=== PATIENT | female | born 1990 | race Caucasian/White ===

== ENCOUNTER 2018-10-14 00:01 | Emergency (ER) | payer BC, MEDICAID ==
[2018-10-14 00:02] VITALS: BMI 22.2
[2018-10-14 00:20] VITALS: O2SAT 100
[2018-10-14] MEDS ORDERED: Sodium Chloride 0.9% 1,000 ML IV ONE (00:23)
--- NOTE | 2018-10-14 00:23 | C.PDOC ---
History Of Present Illness Patient presents to the ER shaking stating she has been "detoxing" from ETOH by herself. Patient drinks everyday, last drink was 1600, states she has gone through the "shakes" before. She is currently speaking in complete sentences. Denies fever, chills, nausea, or vomiting. Time Seen by Provider: 10/14/18 00:22 Chief Complaint (Nursing): Substance Abuse History Per: Patient History/Exam Limitations: no limitations Onset/Duration Of Symptoms: Hrs Current Symptoms Are (Timing): Still Present Suicide/Self Injury Attempted (Context): None Modifying Factor(s): Alcohol Associated Symptoms: denies: Depression, Suicidal Thoughts Involuntary Hold By: None Recent travel outside of the [place]: No Past Medical History Reviewed: Historical Data, Nursing Documentation, Vital Signs Vital Signs: Last Vital Signs Temp 98.2 F 10/14/18 00:16 Pulse 101 H 10/14/18 00:16 Resp 24 10/14/18 00:16 BP 170/93 H 10/14/18 00:16 Pulse Ox 100 10/14/18 00:16 - Medical History PMH: Seizures Denies: Depression, Diabetes, Hepatitis, HIV, HTN, Chronic Kidney Disease, Sexually Transmitted Disease - [facility] Procedures INJECT/INFUSE NEC (08/05/04) INTRODUCTION OF SERUM/TOX/VACCINE INTO MUSCLE, PERC APPROACH (03/20/16) REPAIR FACE SKIN, EXTERNAL APPROACH (03/20/16) Family History: States: No Known Family Hx - Social History Hx Tobacco Use: Yes Hx Alcohol Use: Yes Hx Substance Use: No - Immunization History Hx Tetanus Toxoid Vaccination: No Hx Influenza Vaccination: No Hx Pneumococcal Vaccination: No Review Of Systems Constitutional: Negative for: Fever, Chills Cardiovascular: Negative for: Chest Pain, Palpitations Respiratory: Negative for: Cough, Shortness of Breath Gastrointestinal: Negative for: Nausea, Vomiting Neurological: Positive for: Other (Shaking). Negative for: Weakness, Numbness Physical Exam - Physical Exam Appears: Non-toxic Skin: Warm, Dry Head: Normacephalic Eye(s): bilateral: Normal Inspection Oral Mucosa: Moist Chest: Symmetrical, No Tenderness Cardiovascular: Rhythm Regular Respiratory: No Rales, No Rhonchi, No Wheezing Gastrointestinal/Abdominal: Soft, No Tenderness Neurological/Psych: Oriented x3, Other (Tremulous) ED Course And Treatment - Laboratory Results Result Diagrams: 10/14/18 00:31 10/14/18 00:31 O2 Sat by Pulse Oximetry: 100 (Room air) Pulse Ox Interpretation: Normal Progress Note: Blood work and urinalysis ordered. IV fluids, librium, pepcid, and zofran administered. Pt was seen by the vegetable harvest worker and given information for outpatient treatment centers Reevaluation Time: 03:59 Reassessment Condition: Improved Medical Decision Making Medical Decision Making: Upon provider reevaluation patient is feeling better, is medically stable, and requires no further treatment in the ED at this time. Patient will be discharged home with Rx for zofran . Counseling was provided and all questions were answered regarding diagnosis and need for follow up with the referred clinic. There is agreement to discharge plan. Return if symptoms persist or worsen. Disposition Counseled Patient/Family Regarding: Studies Performed, Diagnosis, Need For Followup, Rx Given - Disposition Referrals: [facility] [Outside] Disposition: HOME/ ROUTINE Disposition Time: 00:23 Condition: FAIR Prescriptions: Ondansetron ODT [Zofran ODT] 1 odt PO BID PRN #6 odt PRN Reason: Nausea/Vomiting Instructions: Alcohol Abuse and Alcoholism (DC) Forms: [employer] (Italian) - Clinical Impression Clinical Impression: Alcohol abuse - Scribe Statement The provider has reviewed the documentation as recorded by the Scribe Loc [place] All medical record entries made by the Scribe were at my direction and personally dictated by me. I have reviewed the chart and agree that the record accurately reflects my personal performance of the history, physical exam, medical decision making, and the department course for this patient. I have also personally directed, reviewed, and agree with the discharge instructions and disposition.
[2018-10-14 00:40] LABS: BASO # 0.1 K/uL (0.0-0.2); BASO % 1.1 % (0.0-2.0); EOS % 0.8 % (0.0-4.0); HEMOGLOBIN 13.1 g/dL (11.0-16.0); LYMPH # 0.8 K/uL (1.0-4.3); MEAN CORPUSCULAR HEMOGLOBIN 31.1 pg (27.0-31.0); MEAN CORPUSCULAR HGB CONC 34.6 g/dL (33.0-37.0); MEAN PLATELET VOLUME 7.2 fL (7.2-11.7); MONO # 0.6 K/uL (0.0-0.8); MONO % 9.8 % (0.0-10.0); NEUT # 4.1 K/uL (1.8-7.0); NEUT % 73.3 % (50.0-75.0); NRBC % 0.1 % (0.0-2.0); RBC 4.2 Mil/uL (3.80-5.20); RED CELL DISTRIBUTION WIDTH 13.7 % (11.5-14.5); WHITE BLOOD COUNT 5.6 K/uL (4.8-10.8)
[2018-10-14 00:55] LABS: ALB/GLOB RATIO 1.5 (1.0-2.1); ALBUMIN 4.8 g/dL (3.5-5.0); ALT/SGPT 30 U/L (9-52); AST/SGOT 43 U/L (14-36); BLOOD UREA NITROGEN 10 mg/dL (7-17); CALCIUM 9.3 mg/dl (8.6-10.4); GFR NON-AFRICAN AMERICAN > 60
[2018-10-14 03:15] LABS: SQUAMOUS EPITHIAL 31 /hpf (0-5); URINE BACTERIA RARE (<OCC); URINE BILIRUBIN NEGATIVE (NEGATIVE); URINE BLOOD NEGATIVE (NEGATIVE); URINE CLARITY Hazy (Clear); URINE COLOR Yellow (YELLOW); URINE GLUCOSE (UA) NORMAL (Normal); URINE LEUKOCYTE ESTERASE TRACE Leu/uL (Negative); URINE PROTEIN 2+ mg/dL (NEGATIVE)
[2018-10-14 03:19] VITALS: BP 117/79; PULSE 102; RESP 18; TEMP 98.5
[2018-10-14 03:20] LABS: HCG,QUALITATIVE URINE NEGATIVE (NEGATIVE)
[2018-10-14 03:43] LABS: BARBITURATES, UR NEGATIVE (NEGATIVE); BENZODIAZEPINES, UR NEGATIVE (NEGATIVE); OPIATES, UR NEGATIVE (NEGATIVE); PHENCYCLIDINE, UR NEGATIVE (NEGATIVE)
== END 2018-10-14 04:12 | disposition home or self-care (01) ==
LOC: C.ER 00:01
DX: F10.10 Alcohol abuse, uncomplicated (principal); Y90.9 Presence of alcohol in blood, level not specified
CPT/HCPCS: 80053; 80320; 80324; 80345; 80346; 80349; 80353; 80358; 80361; 81001; 83735; 83992; 84100; 84703; 85025; 96361; 96374; 96375; 99284; J2405; J7030

== ENCOUNTER 2018-11-14 15:40 | Observation (INO) | payer MEDICAID ==
[2018-11-14 15:40] VITALS: BMI 22.2
[2018-11-14] MEDS ORDERED: Sodium Chloride 0.9% 1,000 ML IV ONE (16:05)
--- NOTE | 2018-11-14 16:14 | C.PDOC ---
History Of Present Illness 28 y/o female with no PMHx presents to the ED requesting detox from alcohol. States she gets tremors when she does not drink. Patient reports daily alcohol use, her last drink was yesterday in an effort to self-detox at home. She is now complaining of worsening tremors and feeling "shaky." Patient otherwise denies chest pain, palpitations, SOB, abdominal pain, nausea, vomiting, or dizziness. Denies any drug use. Time Seen by Provider: 11/14/18 15:46 Chief Complaint (Nursing): Substance Abuse History Per: Patient History/Exam Limitations: no limitations Onset/Duration Of Symptoms: Days Current Symptoms Are (Timing): Still Present Suicide/Self Injury Attempted (Context): None Modifying Factor(s): Alcohol Associated Symptoms: denies: Suicidal Thoughts, Suicidal Plan Past Medical History Reviewed: Historical Data, Nursing Documentation, Vital Signs Vital Signs: Last Vital Signs Temp 98 F 11/14/18 15:42 Pulse 104 H 11/14/18 16:05 Resp 15 11/14/18 16:05 BP 134/86 11/14/18 16:05 Pulse Ox 98 11/14/18 16:05 - Medical History PMH: Seizures Denies: Depression, Diabetes, Hepatitis, HIV, HTN, Chronic Kidney Disease, Sexually Transmitted Disease Other PMH: Alcohol abuse - [facility] Procedures INJECT/INFUSE NEC (08/05/04) INTRODUCTION OF SERUM/TOX/VACCINE INTO MUSCLE, PERC APPROACH (03/20/16) REPAIR FACE SKIN, EXTERNAL APPROACH (03/20/16) Family History: States: Unknown Family Hx - Social History Hx Tobacco Use: Yes Hx Alcohol Use: Yes (daily) Hx Substance Use: No - Immunization History Hx Tetanus Toxoid Vaccination: No Hx Influenza Vaccination: No Hx Pneumococcal Vaccination: No Review Of Systems Except As Marked, All Systems Reviewed And Found Negative. Constitutional: Positive for: Other (Feels "shaky"). Negative for: Fever, Chills Eyes: Negative for: Vision Change Cardiovascular: Negative for: Chest Pain, Palpitations Respiratory: Negative for: Shortness of Breath Gastrointestinal: Negative for: Nausea, Vomiting, Abdominal Pain, Diarrhea Musculoskeletal: Positive for: Other (Tremors). Negative for: Back Pain Neurological: Negative for: Weakness, Numbness, Dizziness Psych: Positive for: Other (Daily alcohol abuse) Physical Exam - Physical Exam Appears: Non-toxic, No Acute Distress Skin: Warm, Dry Head: Atraumatic, Normacephalic Eye(s): bilateral: Normal Inspection, PERRL, EOMI Oral Mucosa: Moist Tongue: Other (Tremulous) Neck: Normal ROM Chest: Symmetrical Cardiovascular: Rhythm Regular, Other (Tachycardic) Respiratory: Normal Breath Sounds, No Accessory Muscle Use, No Wheezing Gastrointestinal/Abdominal: Soft, No Tenderness, No Distention Extremity: Bilateral: Atraumatic, Normal Color And Temperature, Other (Tremulous to bilateral hands) Pulses: Left Radial: Normal, Right Radial: Normal Neurological/Psych: Oriented x3, Normal Cranial Nerves ED Course And Treatment - Laboratory Results Result Diagrams: 11/14/18 16:12 11/14/18 16:12 O2 Sat by Pulse Oximetry: 98 (RA) Pulse Ox Interpretation: Normal Medical Decision Making Medical Decision Making: Impression: Detox for alcohol Initial Plan: - EKG - Labs - Chest x-ray - IV fluids - 1 mg IV Ativan Discussed w/ crisis team, there are no detox beds available at this time. Crisis will speak to patient and licensed professional counselor regarding outpatient programs available. 4:19PM EKG shows sinus tachycardia at 108bpm with non-specific st changes. Cxray negative. 4:48pm CIWA of 9. CXR shows no acute disease. 5:14PM Patient was offered admission to hospital for alcohol withdrawal as there are no detox beds and then likely transfer to detox. Dr. Jane at bedside. Disposition - Disposition Disposition: HOSPITALIZED Disposition Time: 17:34 Condition: FAIR Forms: [employer] (Turkish) - Clinical Impression Clinical Impression: Alcohol withdrawal - Scribe Statement The provider has reviewed the documentation as recorded by the Felicia Rivas Provider Attestation: All medical record entries made by the Jerryibally were at my direction and personally dictated by me. I have reviewed the chart and agree that the record accurately reflects my personal performance of the history, physical exam, medical decision making, and the department course for this patient. I have also personally directed, reviewed, and agree with the discharge instructions and disposition.
[2018-11-14 16:15] LABS: BASO % 0.2 % (0.0-2.0); EOS # 0.1 K/uL (0.0-0.7); EOS % 0.8 % (0.0-4.0); HEMOGLOBIN 13.5 g/dL (11.0-16.0); LYMPH # 1.1 K/uL (1.0-4.3); LYMPH % 16.8 % (20.0-40.0); MEAN CORPUSCULAR HEMOGLOBIN 30.7 pg (27.0-31.0); MEAN CORPUSCULAR HGB CONC 33.8 g/dL (33.0-37.0); MEAN PLATELET VOLUME 7.4 fL (7.2-11.7); MONO # 0.4 K/uL (0.0-0.8); MONO % 5.4 % (0.0-10.0); NEUT # 5.2 K/uL (1.8-7.0); NEUT % 76.8 % (50.0-75.0); RBC 4.39 Mil/uL (3.80-5.20); RED CELL DISTRIBUTION WIDTH 14.8 % (11.5-14.5); WHITE BLOOD COUNT 6.8 K/uL (4.8-10.8)
[2018-11-14] MEDS ORDERED: Sodium Chloride 0.9% 1,000 ML ONE (16:16)
[2018-11-14 16:28] LABS: BLOOD UREA NITROGEN 13 mg/dL (7-17); CALCIUM 9.2 mg/dl (8.6-10.4); GFR NON-AFRICAN AMERICAN > 60
[2018-11-14 16:30] LABS: ALB/GLOB RATIO 1.5 (1.0-2.1); ALBUMIN 5.1 g/dL (3.5-5.0); ALT/SGPT 10 U/L (9-52); AST/SGOT 53 U/L (14-36)
[2018-11-14 16:31] LABS: BARBITURATES, UR NEGATIVE (NEGATIVE); OPIATES, UR NEGATIVE (NEGATIVE); PHENCYCLIDINE, UR NEGATIVE (NEGATIVE)
[2018-11-14 16:32] LABS: BENZODIAZEPINES, UR POSITIVE (NEGATIVE)
--- NOTE | 2018-11-14 16:50 | RAD ---
Date of service: 11/14/2018 HISTORY: tachycardia COMPARISON: No prior. FINDINGS: LUNGS: No active pulmonary disease. PLEURA: No significant pleural effusion identified, no pneumothorax apparent. CARDIOVASCULAR: No aortic atherosclerotic calcification present. Normal cardiac size. No pulmonary vascular congestion. OSSEOUS STRUCTURES: No significant abnormalities. VISUALIZED UPPER ABDOMEN: Normal. OTHER FINDINGS: None. IMPRESSION: No active disease.
--- NOTE | 2018-11-14 19:21 | CP.PCM.HP ---
History of Present Illness - History of Present Illness History of Present Illness: 28 y/o female with no PMHx presents to the ED requesting detox from alcohol. States she gets tremors when she does not drink. Patient reports daily alcohol use, her last drink was yesterday in an effort to self-detox at home. She is now complaining of worsening tremors and feeling "shaky. Pt. was admitted as she had persistent s. tachy Present on Admission - Present on Admission Any Indicators Present on Admission: No Review of Systems - Review of Systems All systems: reviewed and no additional remarkable complaints except (tremors ,shaking) Past Patient History - Infectious Disease Hx of Infectious Diseases: None - Past Medical History & Family History Past Medical History?: Yes - Past Social History Smoking Status: Current Some Days Smoker - CARDIAC Hx Hypertension: No - PULMONARY Hx Respiratory Disorders: No Hx Tuberculosis: No - NEUROLOGICAL Hx Seizures: Yes - HEENT Hx HEENT Problems: No - RENAL Hx Chronic Kidney Disease: No - ENDOCRINE/METABOLIC Hx Endocrine Disorders: No - HEMATOLOGICAL/ONCOLOGICAL Hx Human Immunodeficiency Virus (HIV): No - INTEGUMENTARY Hx Dermatological Problems: No - MUSCULOSKELETAL/RHEUMATOLOGICAL Hx Musculoskeletal Disorders: No - GASTROINTESTINAL Hx Gastrointestinal Disorders: No - GENITOURINARY/GYNECOLOGICAL Hx Sexually Transmitted Disorders: No - PSYCHIATRIC Hx Depression: No Hx Substance Use: No - SURGICAL HISTORY Hx Surgeries: Yes Other/Comment: Left oophorectomy - ANESTHESIA Hx Anesthesia: Yes Hx Anesthesia Reactions: No Hx Malignant Hyperthermia: No Meds Allergies/Adverse Reactions: Allergies Allergy/AdvReac Type Severity Reaction Status Date / Time formaldehyde Allergy RASH Verified 11/14/18 15:45 food coloring AdvReac RASH Uncoded 11/14/18 15:45 pasta AdvReac RASH Uncoded 11/14/18 15:45 pollens AdvReac RASH Uncoded 11/14/18 15:45 Physical Exam - Constitutional Appears: Well - Head Exam Head Exam: ATRAUMATIC, NORMAL INSPECTION, NORMOCEPHALIC - Eye Exam Eye Exam: EOMI, Normal appearance, PERRL - Respiratory Exam Respiratory Exam: Clear to Auscultation Bilateral, NORMAL BREATHING PATTERN - Cardiovascular Exam Cardiovascular Exam: Tachycardia, REGULAR RHYTHM - GI/Abdominal Exam GI & Abdominal Exam: Normal Bowel Sounds, Soft. absent: Tenderness - Extremities Exam Extremities exam: Positive for: normal inspection - Back Exam Back exam: NORMAL INSPECTION - Neurological Exam Neurological exam: Alert, CN II-XII Intact, Oriented x3 (tremors ) - Skin Skin Exam: Erythema Results - Vital Signs Recent Vital Signs: Last Vital Signs Temp 98.5 F 11/14/18 18:47 Pulse 97 H 11/14/18 18:47 Resp 20 11/14/18 18:47 BP 130/81 11/14/18 18:47 Pulse Ox 100 11/14/18 18:47 - Labs Result Diagrams: 11/15/18 07:18 11/15/18 07:18 Labs: Laboratory Results - last 24 hr 11/14/18 11/14/18 11/14/18 16:12 16:12 16:12 WBC 6.8 RBC 4.39 Hgb 13.5 Hct 40.0 MCV 91.0 MCH 30.7 MCHC 33.8 RDW 14.8 H Plt Count 197 MPV 7.4 Neut % (Auto) 76.8 H Lymph % (Auto) 16.8 L [place] % (Auto) 5.4 Eos % (Auto) 0.8 Baso % (Auto) 0.2 Neut # (Auto) 5.2 Lymph # (Auto) 1.1 [place] # (Auto) 0.4 Eos # (Auto) 0.1 Baso # (Auto) 0.0 Sodium 133 Potassium 4.7 Chloride 97 L Carbon Dioxide 23 Anion Gap 18 BUN 13 Creatinine 0.6 L Est GFR ( Amer) > 60 Est GFR (Non-Af Amer) > 60 Random Glucose 93 Calcium 9.2 Phosphorus 2.5 Magnesium 1.3 L Total Bilirubin 2.1 H AST 53 H D ALT 10 Alkaline Phosphatase 59 Total Protein 8.5 H Albumin 5.1 H Globulin 3.4 Albumin/Globulin Ratio 1.5 Urine Opiates Screen Negative Urine Methadone Screen Negative Ur Barbiturates Screen Negative Ur Phencyclidine Scrn Negative Ur Amphetamines Screen Negative U Benzodiazepines Scrn Positive U Oth Cocaine Metabols Negative U Cannabinoids Screen Negative Alcohol, Quantitative 71 H Assessment & Plan (1) Seizure Status: Chronic (2) Alcohol withdrawal Status: Acute
[2018-11-14] MEDS: Folic Acid 1 MG, Thiamine 100 MG, Multivitamin (MVI) 10 ML in Dextrose 5% In Water 1,00... IV SCH ×2 (19:43→22:59)
[2018-11-14 20:49] LABS: SQUAMOUS EPITHIAL 35 /hpf (0-5); URINE BACTERIA OCC (<OCC); URINE BILIRUBIN NEGATIVE (NEGATIVE); URINE BLOOD NEGATIVE (NEGATIVE); URINE CLARITY Hazy (Clear); URINE COLOR Amber (YELLOW); URINE GLUCOSE (UA) NORMAL (Normal); URINE LEUKOCYTE ESTERASE 1+ Leu/uL (Negative); URINE PROTEIN 1+ mg/dL (NEGATIVE)
[2018-11-15] MEDS: Magnesium Sulfate 1 gm in D5W 1 GM/100 ML BAG IVPB SCH ×2 (01:15→01:54)
[2018-11-15 07:29] LABS: MEAN CELL VOLUME 91.5 fL (81.0-99.0); MEAN CORPUSCULAR HEMOGLOBIN 30.8 pg (27.0-31.0); MEAN CORPUSCULAR HGB CONC 33.6 g/dL (33.0-37.0); MEAN PLATELET VOLUME 7.7 fL (7.2-11.7); RBC 4.22 Mil/uL (3.80-5.20); RED CELL DISTRIBUTION WIDTH 14.9 % (11.5-14.5); WHITE BLOOD COUNT 3.8 K/uL (4.8-10.8)
[2018-11-15 07:54] LABS: ALB/GLOB RATIO 1.5 (1.0-2.1); ALBUMIN 4.2 g/dL (3.5-5.0); ALT/SGPT 20 U/L (9-52); AST/SGOT 35 U/L (14-36); BLOOD UREA NITROGEN 9 mg/dL (7-17); CALCIUM 8.9 mg/dl (8.6-10.4); GFR NON-AFRICAN AMERICAN > 60
[2018-11-15 08:23] VITALS: RESP 20
--- NOTE | 2018-11-15 10:14 | PCM.PSYCH ---
Initial Psychiatric Evaluation - Initial Psychiatric Evaluation Type of Admission: Voluntary Legal Status: Capacity Chief Complaint (in patient's own words): I was drinking heavily History of Present Illness and Precipitating Events: Patient is a 28 -year-old, female who is single, unemployed, and living with her parents and two her children ages 9 and 8. He presents for alcohol detox. The patient was consulted by psychiatry today. Patient has a long history of alcohol abuse. Patient reports drinking 2 pints of alcohol a day. Patient has a history of DTs and seizures. She states that her last drink was last night. She has been to [facility] [place] detox twice before, with the last time being 1 month ago. Patient reports that her longest time of sobriety was 1 year before she relapsed recently. She currently complains of nausea, abdominal pain, and feels anxious from her withdrawal. She denies any feelings of depression, hopelessness, helplessness, or worthlessness. Patient denies any suicidal or homicidal ideation, auditory or visual hallucinations, and paranoia. Patient states that she smokes 4-5 cigarettes a day but denies using any other substances including heroin, cocaine, and pills. Past Psychiatric History: none Family Psych History: none PMHx: epilepsy (last seizure was last week) Meds: vitamin D Current Medications: Active Medications Generic Name Dose Route Start Last Admin Trade Name Benito PRN Reason Stop Dose Admin Folic Acid 1 mg 11/15/18 10:00 Folic Acid PO DAILY [facility] Folic Acid 1 mg/ Thiamine HCl 1,011.2 mls @ 200 mls/hr 11/15/18 20:00 100 mg/ Multivitamins/Vitamin IV C 10 ml/ Dextrose Q24H [facility] Multivitamins 1 tab 11/15/18 10:00 Hexavitamin PO DAILY [facility] Thiamine HCl 100 mg 11/15/18 10:00 Vitamin B1 Tab PO DAILY [facility] Past Psychiatric History - Past Psychiatric History Previous Treatment History: None Pertinent Medical Hx (Current Medical&Sleep Prob, Allergies): Allergies Allergy/AdvReac Type Severity Reaction Status Date / Time formaldehyde Allergy RASH Verified 11/14/18 15:45 food coloring AdvReac RASH Uncoded 11/14/18 15:45 pasta AdvReac RASH Uncoded 11/14/18 15:45 pollens AdvReac RASH Uncoded 11/14/18 15:45 Cholecalciferol [Vitamin D] 1,000 unit PO DAILY 11/14/18 Review of Systems - Review of Systems All systems: reviewed and no additional remarkable complaints except - Psychiatric Psychiatric: Anxiety, Irritability. absent: Suicidal Ideation Mental Status Examination - Personal Presentation Personal Presentation: Looks stated age - Affect Affect: Constricted - Motor Activity Motor Activity: Calm - Reliability in Providing Information Reliability in Providing Information: Fair - Speech Speech: Organized - Mood Mood: Anxious - Formal Thought Process Formal Thought Process: No Impairment - Obsessions/Compulsions Obsessions: No Compulsions: No - Cognitive Functions Orientation: Person, Place, Situation, Time Sensorium: Alert Attention/Concentration: Attentive Abstract Thinking: [place] Estimate of Intelligence: Below average Judgement: Imparied, as evidence by: Poor judgement, Intact, as evidence by: Insight regarding need for hospitalization - Risk Risk: Withdrawal, Diminished functioning - Strength & Assets Inventory Strength & Assets Inventory: Family support DSM 5 DX - DSM 5 DSM 5 Diagnosis: Alcohol use disorder severe Alcohol withdrawal - Recommended/Plan of Treatment Treatment Recommendations and Plan of Treatment: Supportive therapy Psychoeducation Librium taper Trazodone for insomnia Patient psychiatrically stable. Psychiatric follow-up as needed
[2018-11-15] MEDS: Multiple Vitamins Tab PO SCH (11:34)
--- NOTE | 2018-11-15 12:03 | CP.PCM.PN ---
Subjective - Date & Time of Evaluation Date of Evaluation: 11/15/18 Time of Evaluation: 12:02 - Subjective Subjective: ALERT VS STABLE TREMORS AND SHAKING AWAITING PSYCH EVAL FOR DEXOT Objective - Vital Signs/Intake and Output Vital Signs (last 24 hours): Temp Pulse Resp BP Pulse Ox 97.9 F 88 20 110/69 96 11/15/18 08:22 11/15/18 08:22 11/15/18 08:22 11/15/18 08:22 11/15/18 08:22 Intake and Output: 11/15/18 11/15/18 11:59 23:59 Intake Total 720 Balance 720 - Medications Medications: Current Medications Chlordiazepoxide (Librium) 25 mg PO Q4H PRN PRN Reason: Alcohol Withdrawal Chlordiazepoxide (Librium) 25 mg PO Q6 [facility]; Taper Stop: 11/19/18 11:59 Last Admin: 11/15/18 11:34 Dose: 25 mg Clonidine HCl (Catapres) 0.1 mg PO Q4H PRN PRN Reason: Symptoms of alcohol withdrawl Folic Acid (Folic Acid) 1 mg PO DAILY [facility] Last Admin: 11/15/18 11:34 Dose: 1 mg Folic Acid 1 mg/ Thiamine HCl 100 mg/ Multivitamins/Vitamin C 10 ml/ Dextrose 1,011.2 mls @ 200 mls/hr IV Q24H [facility] Multivitamins (Hexavitamin) 1 tab PO DAILY [facility] Last Admin: 11/15/18 11:34 Dose: 1 tab Thiamine HCl (Vitamin B1 Tab) 100 mg PO DAILY [facility] Last Admin: 11/15/18 11:34 Dose: 100 mg Trazodone HCl (Desyrel) 50 mg PO HS PRN PRN Reason: Insomnia - Labs Labs: 11/15/18 07:18 11/15/18 07:18 Assessment and Plan (1) Seizure Status: Chronic (2) Alcohol withdrawal Status: Acute
[2018-11-15] MEDS: Sodium Chloride 0.9% 1,000 ML IV SCH (13:59)
[2018-11-15] MEDS ORDERED: Folic Acid 1 MG, Thiamine 100 MG, Multivitamin (MVI) 10 ML in Dextrose 5% In Water 1,00... IV SCH (20:00)
[2018-11-16 00:07] VITALS: TEMP 97.9
[2018-11-16] MEDS: Sodium Chloride 0.9% 1,000 ML IV SCH ×2 (03:08→14:53)
[2018-11-16 07:56] VITALS: BP 112/77; O2SAT 97
[2018-11-16] MEDS: Multiple Vitamins Tab PO SCH (10:43)
--- NOTE | 2018-11-16 11:38 | CP.PCM.PN ---
Subjective - Date & Time of Evaluation Date of Evaluation: 11/16/18 Time of Evaluation: 11:38 - Subjective Subjective: TREMORS LESS PT IS MEDICALY CLEARED FOR DETOX Objective - Vital Signs/Intake and Output Vital Signs (last 24 hours): Temp Pulse Resp BP Pulse Ox 97.9 F 78 20 112/77 97 11/16/18 07:00 11/16/18 07:00 11/16/18 07:00 11/16/18 07:00 11/16/18 07:00 Intake and Output: 11/15/18 11/16/18 23:59 11:59 Intake Total 480 1120 Balance 480 1120 - Medications Medications: Current Medications Chlordiazepoxide (Librium) 25 mg PO Q4H PRN PRN Reason: Alcohol Withdrawal Last Admin: 11/15/18 22:07 Dose: 25 mg Chlordiazepoxide (Librium) 25 mg PO Q6 [facility]; Taper Stop: 11/19/18 11:59 Last Admin: 11/16/18 06:22 Dose: 25 mg Clonidine HCl (Catapres) 0.1 mg PO Q4H PRN PRN Reason: Symptoms of alcohol withdrawl Folic Acid (Folic Acid) 1 mg PO DAILY [facility] Last Admin: 11/16/18 10:43 Dose: 1 mg Folic Acid 1 mg/ Thiamine HCl 100 mg/ Multivitamins/Vitamin C 10 ml/ Dextrose 1,011.2 mls @ 200 mls/hr IV Q24H [facility] Last Admin: 11/15/18 20:30 Dose: 200 mls/hr Sodium Chloride (Sodium Chloride 0.9%) 1,000 mls @ 80 mls/hr IV .[id number] [facility] Last Admin: 11/16/18 03:08 Dose: 80 mls/hr Multivitamins (Hexavitamin) 1 tab PO DAILY [facility] Last Admin: 11/16/18 10:43 Dose: 1 tab Thiamine HCl (Vitamin B1 Tab) 100 mg PO DAILY [facility] Last Admin: 11/16/18 10:43 Dose: 100 mg Trazodone HCl (Desyrel) 50 mg PO HS PRN PRN Reason: Insomnia - Labs Labs: 11/15/18 07:18 11/15/18 07:18 Assessment and Plan (1) Seizure Status: Chronic (2) Alcohol withdrawal Status: Acute
[2018-11-16 11:55] LABS: HEMOGLOBIN 12.1 g/dL (11.0-16.0); MEAN CELL VOLUME 92.6 fL (81.0-99.0); MEAN CORPUSCULAR HEMOGLOBIN 30.7 pg (27.0-31.0); MEAN CORPUSCULAR HGB CONC 33.1 g/dL (33.0-37.0); MEAN PLATELET VOLUME 8.1 fL (7.2-11.7); RBC 3.96 Mil/uL (3.80-5.20); RED CELL DISTRIBUTION WIDTH 14.7 % (11.5-14.5); WHITE BLOOD COUNT 3.5 K/uL (4.8-10.8)
[2018-11-16 12:17] LABS: BLOOD UREA NITROGEN 6 mg/dL (7-17); CALCIUM 8.5 mg/dl (8.6-10.4); GFR NON-AFRICAN AMERICAN > 60
[2018-11-16] MEDS ORDERED: Potassium Chloride 20 mEq ER Tab PO ONE (12:44)
--- NOTE | 2018-11-16 13:43 | CP.PCM.PN ---
Subjective - Date & Time of Evaluation Date of Evaluation: 11/16/18 Time of Evaluation: 13:43 - Subjective Subjective: PATIENT SEEN AND EXAMINED AT THE BEDSIDE Objective - Vital Signs/Intake and Output Vital Signs (last 24 hours): Temp Pulse Resp BP Pulse Ox 97.9 F 78 20 112/77 97 11/16/18 07:00 11/16/18 07:00 11/16/18 07:00 11/16/18 07:00 11/16/18 07:00 Intake and Output: 11/16/18 11/16/18 06:59 18:59 Intake Total 1120 Balance 1120 - Medications Medications: Current Medications Chlordiazepoxide (Librium) 25 mg PO Q4H PRN PRN Reason: Alcohol Withdrawal Last Admin: 11/15/18 22:07 Dose: 25 mg Chlordiazepoxide (Librium) 25 mg PO TID [facility]; Taper Stop: 11/19/18 11:59 Last Admin: 11/16/18 06:22 Dose: 25 mg Clonidine HCl (Catapres) 0.1 mg PO Q4H PRN PRN Reason: Symptoms of alcohol withdrawl Folic Acid (Folic Acid) 1 mg PO DAILY [facility] Last Admin: 11/16/18 10:43 Dose: 1 mg Folic Acid 1 mg/ Thiamine HCl 100 mg/ Multivitamins/Vitamin C 10 ml/ Dextrose 1,011.2 mls @ 200 mls/hr IV Q24H [facility] Last Admin: 11/15/18 20:30 Dose: 200 mls/hr Sodium Chloride (Sodium Chloride 0.9%) 1,000 mls @ 80 mls/hr IV .[id number] [facility] Last Admin: 11/16/18 03:08 Dose: 80 mls/hr Multivitamins (Hexavitamin) 1 tab PO DAILY [facility] Last Admin: 11/16/18 10:43 Dose: 1 tab Thiamine HCl (Vitamin B1 Tab) 100 mg PO DAILY [facility] Last Admin: 11/16/18 10:43 Dose: 100 mg Trazodone HCl (Desyrel) 50 mg PO HS PRN PRN Reason: Insomnia - Labs Labs: 11/16/18 11:44 11/16/18 11:44 Assessment and Plan - Assessment and Plan (Free Text) Assessment: FOLLOW UP WITH DR HOUSTON IN HIS OFFICE ------CALL FOR APPOINTMENT FOLLOW UP WITH DR FRIEND CONTINUE HOME MEDICATION NEW PRESCRIPTION GIVEN ] FOLIC ACID 1 MG PO DAILY MULTI VIT ONE TAB DAILY VIT B1 ONE TAB PO DAILY [facility] TOLERATED AND RECOMMENDATION FOR HER TO GO TO DETOX BUT SHE DECLINE AND WANT TO GO TO HOME AVOID DRINKING ALCOHOL CALL DR HOUSTON OR GO TO THE EMERGENCY ROOM IF SYMPTOM RETURN OR WORSENING
[2018-11-16 14:51] VITALS: PULSE 71
--- NOTE | 2018-11-16 22:03 | CARD ---
APPROVED REPORT Date of service: 11/14/2018 EKG Measurement Heart [id number] <Conclusion> Sinus tachycardia Nonspecific ST abnormality Abnormal ECG
== END 2018-11-16 14:47 | disposition home or self-care (01) ==
LOC: C.ER 15:40 → C.9E 17:30 → C.5S 18:01
PROVIDERS: ADMIT Internal Medicine Cardiovascular Disease; ATTEND Internal Medicine Cardiovascular Disease
DX: F10.230 Alcohol dependence with withdrawal, uncomplicated (principal); F17.210 Nicotine dependence, cigarettes, uncomplicated; R56.9 Unspecified convulsions; Y90.3 Blood alcohol level of 60-79 mg/100 ml
CPT/HCPCS: 36415; 71045; 80048; 80053; 80320; 80324; 80345; 80346; 80349; 80353; 80358; 80361; 81001; 81025; 83735; 83992; 84100; 85025; 85027; 93005; 96360; 96374; 99285; G0378; J2060; J2405; J3411; J3475; J7030; J7070

== ENCOUNTER 2018-12-05 22:39 | Inpatient (IN) | payer MEDICAID | END 2018-12-11 11:34 | disposition home or self-care (01) | DRG 750 | LOC: C.5E 12-08 20:59 → C.ER 22:39 → C.5E 12-06 08:29 | PROC: HZ2ZZZZ Detoxification Services for Substance Abuse Treatment (ICD-10-PCS; principal; 2018-12-06) | PROC: HZ52ZZZ Individual Psychotherapy for Substance Abuse Treatment, Cognitive-Behavioral (ICD-10-PCS; 2018-12-06) | PROC: HZ59ZZZ Individual Psychotherapy for Substance Abuse Treatment, Supportive (ICD-10-PCS; 2018-12-06) | PROC: HZ56ZZZ Individual Psychotherapy for Substance Abuse Treatment, Psychoeducation (ICD-10-PCS; 2018-12-06) | PROC: HZ42ZZZ Group Counseling for Substance Abuse Treatment, Cognitive-Behavioral (ICD-10-PCS; 2018-12-06) | PROC: HZ46ZZZ Group Counseling for Substance Abuse Treatment, Psychoeducation (ICD-10-PCS; 2018-12-06) | PROC: GZHZZZZ Group Psychotherapy (ICD-10-PCS; 2018-12-06) | PROC: GZ58ZZZ Individual Psychotherapy, Cognitive-Behavioral (ICD-10-PCS; 2018-12-06) | PROC: GZ56ZZZ Individual Psychotherapy, Supportive (ICD-10-PCS; 2018-12-06) | DX: F10.230 Alcohol dependence with withdrawal, uncomplicated (principal); F33.2 Major depressive disorder, recurrent severe without psychotic features; F10.220 Alcohol dependence with intoxication, uncomplicated; Y90.8 Blood alcohol level of 240 mg/100 ml or more; G47.00 Insomnia, unspecified; F41.9 Anxiety disorder, unspecified; Z87.891 Personal history of nicotine dependence ==

== ENCOUNTER 2019-02-11 04:25 | Inpatient (IN) | payer BC, MEDICAID ==
[2019-02-11 04:27] VITALS: BMI 30.9
--- NOTE | 2019-02-11 05:22 | C.PDOC ---
History Of Present Illness 28-year-old female with a history of seizures, alcohol abuse presents to the emergency department today with anxiety and complaints of alcohol withdrawal. Patient notes that shes been drinking over the past five days and hasnt taken her Keppra. Patient states that she feels depressed but does not want to hurt herself or anybody else and has not tried to recently. Patient states that she felt like she was withdrawing from alcohol at 1:30 AM tonight, after which she presented to the [facility] ED and was discharged with Librium and recommended to come here for further evaluation. Patient noted at this time she would like detox as she feels she is going into withdrawal. Patient denies fever, chills, chest pain, abdominal pain, or back pain. She denies any fall or trauma. No headache, neck stiffness or GI / complaints. Time Seen by Provider: 02/11/19 05:22 Chief Complaint (Nursing): Substance Abuse History Per: Patient History/Exam Limitations: no limitations Onset/Duration Of Symptoms: Days (5) Current Symptoms Are (Timing): Still Present Suicide/Self Injury Attempted (Context): None Modifying Factor(s): Alcohol Associated Symptoms: Anxiety. denies: Depression, Suicidal Thoughts, Suicidal Plan Past Medical History Reviewed: Historical Data, Nursing Documentation, Vital Signs Vital Signs: Last Vital Signs Temp 97.7 F 02/11/19 04:55 Pulse 87 02/11/19 04:55 Resp 16 02/11/19 04:55 BP 102/68 02/11/19 04:55 Pulse Ox 99 02/11/19 04:55 Primary Care Provider: FAMILY PROVIDER,NO - Medical History PMH: Seizures ("AT AGE 14") Denies: Depression, Diabetes, Hepatitis, HIV, HTN, Chronic Kidney Disease, Sexually Transmitted Disease Surgical History: Appendectomy - [facility] Procedures DETOXIFICATION SERVICES FOR SUBSTANCE ABUSE TREATMENT (12/06/18) GROUP VALIDATION ANALYST FOR SUBSTANCE ABUSE TREATMENT, PSYCHOEDUCATION (12/06/18) GROUP VALIDATION ANALYST FOR SUBSTANCE ABUSE, COGNITIVE BEHAVIORAL (12/06/18) GROUP PSYCHOTHERAPY (12/06/18) INDIV PSYCHOTHERAPY FOR SUBSTANCE ABUSE TREATMENT, SUPPORT (12/06/18) INDIV PSYCHOTHERAPY FOR SUBSTANCE ABUSE, COGNITIV BEHAVIORAL (12/06/18) INDIV PSYCHOTHERAPY FOR SUBSTANCE ABUSE, PSYCHOEDUCATION (12/06/18) INDIVIDUAL PSYCHOTHERAPY, COGNITIVE-BEHAVIORAL (12/06/18) INDIVIDUAL PSYCHOTHERAPY, SUPPORTIVE (12/06/18) INJECT/INFUSE NEC (08/05/04) INTRODUCTION OF SERUM/TOX/VACCINE INTO MUSCLE, PERC APPROACH (03/20/16) REPAIR FACE SKIN, EXTERNAL APPROACH (03/20/16) Family History: States: No Known Family Hx - Social History Hx Tobacco Use: Yes Hx Alcohol Use: Yes Hx Substance Use: Yes - Immunization History Hx Tetanus Toxoid Vaccination: No Hx Influenza Vaccination: No Hx Pneumococcal Vaccination: No Review Of Systems Constitutional: Negative for: Fever, Chills, Weakness Eyes: Negative for: Pain, Vision Change ENT: Negative for: Ear Pain, Nose Pain, Mouth Pain, Mouth Swelling, Throat Pain Cardiovascular: Negative for: Chest Pain, Palpitations, Edema Respiratory: Negative for: Cough, Shortness of Breath, SOB with Excertion, Sputum, Wheezing Gastrointestinal: Negative for: Nausea, Vomiting, Diarrhea, Constipation, Melena, Hematochezia, Hematemesis Genitourinary: Negative for: Dysuria, Vaginal Discharge, Vaginal Bleeding Musculoskeletal: Negative for: Back Pain Skin: Negative for: Rash, Lesions Neurological: Negative for: Weakness, Numbness, Incoordination, Change in Speech, Seizures, Headache Psych: Positive for: Anxiety, Withdrawal. Negative for: Depression, Psychosis, Suicidal ideation Physical Exam - Physical Exam Appears: Well, Non-toxic, No Acute Distress Skin: Normal Color, Warm, Dry Head: Atraumatic, Normacephalic Eye(s): bilateral: Normal Inspection, PERRL, EOMI Nose: Normal, No Flaring, No Discharge Oral Mucosa: Moist Tongue: Normal Appearing, No Swelling, No Lesions, Other (no fasciculation) Lips: Normal Appearing Gingiva: Normal Appearing Throat: Normal, No Erythema, No Exudate Neck: Normal, Normal ROM, Trachea Midline, No Midline Cervical Tenderness, No Paracervical Tenderness, Supple, Other (no meningeal signs) Lymphatic: Normal Exam Chest: Symmetrical, No Tenderness Cardiovascular: Rhythm Regular, No Murmur Respiratory: Normal Breath Sounds, No Rales, No Rhonchi, No Wheezing Gastrointestinal/Abdominal: Soft, No Tenderness, No Guarding, No Rebound Back: Normal Inspection, No CVA Tenderness, No Vertebral Tenderness Extremity: Normal ROM, Capillary Refill (normal), Other (no tremor noted on exam. ) Extremity: Bilateral: Atraumatic, No Pedal Edema, Normal ROM, Pelvis-Stable Pulses: Left Radial: Normal, Right Radial: Normal, Left Dorsalis Pedis: Normal, Right Dorsalis Pedis: Normal Neurological/Psych: Oriented x3, Normal Speech, Normal Cognition, Normal Motor, Normal Sensation Extremity: Right: No Drift, Left: No Drift ED Course And Treatment - Laboratory Results Result Diagrams: 02/11/19 06:24 02/11/19 06:24 O2 Sat by Pulse Oximetry: 99 (RA) Pulse Ox Interpretation: Normal Medical Decision Making Medical Decision Makin yr old female w/ hx of etoh withdrawal, etoh abuse, epilepsy on keppra p/w withdrawal like symptoms and seeking detox. On exam pt is non-tremulous, and with without fasciluations. However pt notes she is mildly nauseous and anxious. She notes mild harshness in sound and sensation and notes that she has been n/c with her keppra. Notes taking librium earlier with improvement of her symptoms a fter being referred from [facility] ED. Impression: Alcohol withdrawal. CIWA 18 Plan: EKG Chemistry CBC Ativan 1mg IVP Keppra Urinalysis ativan, keppra ordered ek, nsr, no stemi [id number] Briones for admission x3, unable to reach him. appreciate consult w/ Dr. Rolan Fabian : accepted to his service pt in nad, agreeable to plan Disposition - Disposition Disposition: HOSPITALIZED Disposition Time: 06:52 Condition: STABLE - Clinical Impression Clinical Impression: Alcohol withdrawal - Scribe Statement The provider has reviewed the documentation as recorded by the Scribe (Farhan Cowan) Provider Attestation: All medical record entries made by the Scribe were at my direction and personally dictated by me. I have reviewed the chart and agree that the record accurately reflects my personal performance of the history, physical exam, medical decision making, and the department course for this patient. I have also personally directed, reviewed, and agree with the discharge instructions and disposition.
[2019-02-11 06:28] LABS: BASO % 0.9 % (0.0-2.0); EOS # 0.1 K/uL (0.0-0.7); EOS % 2.6 % (0.0-4.0); HEMOGLOBIN 14.2 g/dL (11.0-16.0); LYMPH # 2.2 K/uL (1.0-4.3); LYMPH % 47.5 % (20.0-40.0); MEAN CORPUSCULAR HEMOGLOBIN 30.8 pg (27.0-31.0); MEAN CORPUSCULAR HGB CONC 33.9 g/dL (33.0-37.0); MEAN PLATELET VOLUME 6.7 fL (7.2-11.7); MONO # 0.5 K/uL (0.0-0.8); NEUT # 1.8 K/uL (1.8-7.0); NRBC % 0.2 % (0.0-2.0); RBC 4.61 Mil/uL (3.80-5.20); RED CELL DISTRIBUTION WIDTH 14.6 % (11.5-14.5); WHITE BLOOD COUNT 4.6 K/uL (4.8-10.8)
[2019-02-11 06:43] LABS: BARBITURATES, UR NEGATIVE (NEGATIVE); BENZODIAZEPINES, UR NEGATIVE (NEGATIVE); OPIATES, UR NEGATIVE (NEGATIVE); PHENCYCLIDINE, UR NEGATIVE (NEGATIVE)
[2019-02-11 06:44] LABS: ALB/GLOB RATIO 1.3 (1.0-2.1); ALBUMIN 4.7 g/dL (3.5-5.0); ALT/SGPT 60 U/L (9-52); AST/SGOT 54 U/L (14-36); BLOOD UREA NITROGEN 11 mg/dL (7-17); GFR NON-AFRICAN AMERICAN > 60
[2019-02-11 06:45] LABS: ACETAMINOPHEN < 10.0 ug/mL (10.0-30.0); SALICYLATE < 1.0 mg/dL 1
[2019-02-11 06:47] LABS: SQUAMOUS EPITHIAL 22 /hpf (0-5); URINE AMORPHOUS SEDIMENT RARE /ul (<OCC); URINE BACTERIA RARE (<OCC); URINE BILIRUBIN NEGATIVE (NEGATIVE); URINE BLOOD NEGATIVE (NEGATIVE); URINE CLARITY Hazy (Clear); URINE COLOR Yellow (YELLOW); URINE GLUCOSE (UA) NORMAL (Normal); URINE LEUKOCYTE ESTERASE NEG Leu/uL (Negative); URINE PROTEIN 2+ mg/dL (NEGATIVE)
[2019-02-12] MEDS ORDERED: Ergocalciferol 50,000 Intl Units Cap PO SCH (10:00)
[2019-02-12] MEDS: Multiple Vitamins Tab PO SCH (10:00)
--- NOTE | 2019-02-12 11:52 | PCM.PSYCH ---
Initial Psychiatric Evaluation - Initial Psychiatric Evaluation Type of Admission: Voluntary Legal Status: Capacity Current Medications: Active Medications Generic Name Dose Route Start Last Admin Trade Name Freq PRN Reason Stop Dose Admin Chlordiazepoxide 25 mg 02/12/19 12:00 Librium PO 02/16/19 11:59 Q6 RICHAR Taper Ergocalciferol 1 cap 02/12/19 10:00 02/12/19 10:00 Drisdol 50,000 Intl Units Cap PO 1 cap QWK RICHAR Administration Fluocinonide 0 gm 02/11/19 18:00 02/12/19 09:59 Lidex 0.05% Cream TOP 1 applic BID RICHAR Administration Folic Acid 1 mg 02/12/19 10:00 02/12/19 10:00 Folic Acid PO 1 mg DAILY RICHAR Administration Gabapentin 300 mg 02/11/19 12:00 02/12/19 10:00 Neurontin PO 300 mg BID RICHAR Administration Levetiracetam 500 mg 02/11/19 18:00 02/12/19 10:01 Keppra PO 500 mg BID RICHAR Administration Mirtazapine 30 mg 02/11/19 22:00 02/11/19 22:02 Remeron PO 30 mg HS RICHAR Administration Multivitamins 1 tab 02/12/19 10:00 02/12/19 10:00 Hexavitamin PO 1 tab DAILY RICHAR Administration Thiamine HCl 100 mg 02/12/19 10:00 02/12/19 10:00 Vitamin B1 Tab PO 100 mg DAILY RICHAR Administration Trazodone HCl 100 mg 02/11/19 11:34 02/11/19 22:02 Desyrel PO 100 mg HS PRN Administration Insomnia Past Psychiatric History - Past Psychiatric History Pertinent Medical Hx (Current Medical&Sleep Prob, Allergies): Allergies Allergy/AdvReac Type Severity Reaction Status Date / Time formaldehyde Allergy RASH Verified 02/11/19 05:00 food coloring AdvReac RASH Uncoded 02/11/19 05:00 pasta AdvReac RASH Uncoded 02/11/19 05:00 pollens AdvReac RASH Uncoded 02/11/19 05:00 Cholecalciferol [Vitamin D 1000 IU] 1,000 unit PO DAILY 11/14/18 Folic Acid 1 mg PO DAILY 30 Days tab 11/16/18 Multivitamins [Hexavitamin] 1 tab PO DAILY 30 Days tab 11/16/18 Thiamine [Vitamin B1 Tab] 100 mg PO DAILY 30 Days tab 11/16/18 Fluocinonide 0.05% Cream [Lidex 0.05% Cream] 1 gm TOP BID #1 tube 12/11/18 Gabapentin [Neurontin] 300 mg PO BID #60 cap 12/11/18 Mirtazapine [Remeron] 30 mg PO HS #30 tab 12/11/18 levETIRAcetam [Keppra] 500 mg PO BID #60 tab 12/11/18 traZODone [Desyrel] 100 mg PO HS PRN #30 tab 12/11/18
--- NOTE | 2019-02-12 17:52 | CARD ---
APPROVED REPORT Date of service: 02/11/2019 EKG Measurement Heart [id number] <Conclusion> Normal sinus rhythm with sinus arrhythmia Early repolarization Normal ECG
[2019-02-13 00:20] VITALS: RESP 20
--- NOTE | 2019-02-13 03:54 | CP.PCM.HP ---
Present on Admission - Present on Admission Any Indicators Present on Admission: No Past Patient History - Infectious Disease Hx of Infectious Diseases: None - Past Medical History & Family History Past Medical History?: Yes - Past Social History Smoking Status: Light Smoker < 10 Cigarettes Daily - CARDIAC Hx Cardiac Disorders: No Hx Hypertension: No - PULMONARY Hx Respiratory Disorders: No Hx Tuberculosis: No - NEUROLOGICAL Hx Neurological Disorder: Yes Hx Seizures: Yes ("AT AGE 14") - HEENT Hx HEENT Problems: No - RENAL Hx Chronic Kidney Disease: No - ENDOCRINE/METABOLIC Hx Endocrine Disorders: No - HEMATOLOGICAL/ONCOLOGICAL Hx Human Immunodeficiency Virus (HIV): No - INTEGUMENTARY Hx Dermatological Problems: No Other/Comment: Eczema - MUSCULOSKELETAL/RHEUMATOLOGICAL Hx Musculoskeletal Disorders: Yes Hx Falls: Yes - GASTROINTESTINAL Hx Gastrointestinal Disorders: No - GENITOURINARY/GYNECOLOGICAL Hx Genitourinary Disorders: No Hx Sexually Transmitted Disorders: No - PSYCHIATRIC Hx Depression: Yes Hx Substance Use: Yes - SURGICAL HISTORY Hx Surgeries: Yes Hx Appendectomy: Yes Other/Comment: Left Oophorectomy - ANESTHESIA Hx Anesthesia: Yes Hx Anesthesia Reactions: No Hx Malignant Hyperthermia: No Meds Allergies/Adverse Reactions: Allergies Allergy/AdvReac Type Severity Reaction Status Date / Time formaldehyde Allergy RASH Verified 02/11/19 05:00 food coloring AdvReac RASH Uncoded 02/11/19 05:00 pasta AdvReac RASH Uncoded 02/11/19 05:00 pollens AdvReac RASH Uncoded 02/11/19 05:00 Results - Vital Signs Recent Vital Signs: Last Vital Signs Temp 98.2 F 02/12/19 23:50 Pulse 82 02/12/19 23:50 Resp 20 02/12/19 23:50 BP 103/69 02/12/19 23:50 Pulse Ox 98 02/12/19 23:50 - Labs Result Diagrams: 02/11/19 06:24 02/11/19 06:24
[2019-02-13] MEDS: Multiple Vitamins Tab PO SCH (09:49)
--- NOTE | 2019-02-13 11:07 | HP ---
CHIEF COMPLAINT: Shaking and tremulousness times few days. HISTORY OF PRESENT ILLNESS: This is a 28-year-old female with history of alcoholism with prior history of ER visits and hospitalization because of alcohol and alcohol-related problem. She also has history of seizures due to alcohol and her usual status of health. She is ambulatory and independent in activities of daily living, and according to the patient, she has been drinking. She has been drinking for a long time. She is not taking her Keppra, and according to the patient, she feels depressed, and when she feels depressed, she drinks. She denies any suicidal or homicidal ideations. The patient was withdrawing. Around 1 p.m on the day of admission, she came to emergency room, she was given and discharged. The patient came back to [facility]. She denies any fever, chills, or rigors. She denies any nausea, vomiting, or diarrhea. She denies any history of polyuria, polydipsia, or polyphagia. She denies any history of sneezing, itchy eyes, itchy nose. There is no history of trauma, fall, loss of consciousness. There is no history of cough, sore throat, runny nose. PAST MEDICAL HISTORY: Depression. SOCIAL HISTORY: She is a smoker and she is alcoholic. CURRENT MEDICATIONS: She is supposed to be on trazodone, Keppra, thiamine, multivitamin, Remeron, gabapentin, folic acid, and vitamin D. PHYSICAL EXAMINATION: GENERAL: A young female in no acute distress. VITAL SIGNS: Blood pressure 100/74, pulse 76, respiratory rate 20, and temperature 98. SKIN: No rashes. No bruises. No purpura. HEENT: Atraumatic and normocephalic. Negative pallor. Negative jaundice. Extraocular movements are intact. NECK: Supple. No JVD. No lymph node. No thyromegaly. CHEST WALL: Bilateral symmetrical expansion. LUNGS: Clear. No rales. No rhonchi. CARDIOVASCULAR SYSTEM: S1 and S2. Regular. No heave. No thrill. ABDOMEN: Soft and nontender. Bowel sounds are positive. EXTREMITIES: No clubbing, cyanosis, or edema. CENTRAL NERVOUS SYSTEM: Awake, alert, and oriented x3. Cranial nerves II through XII are normal. Power 5/5 x4. Plantars are downgoing. ASSESSMENT: 1. Delirium tremens. 2. Seizure due to alcohol. 3. Dehydration. 4. Alcoholism. PLAN: Admit. Detailed orders are written. Seen and examined. The patient needs detox. The patient needs to be evaluated by Psychiatry. Monitor the patient. Rolan Fabian MD
--- NOTE | 2019-02-13 21:14 | CP.PCM.PN ---
Subjective - Date & Time of Evaluation Date of Evaluation: 02/13/19 Time of Evaluation: 20:00 - Subjective Subjective: dict Objective - Vital Signs/Intake and Output Vital Signs (last 24 hours): Temp Pulse Resp BP Pulse Ox 98.1 F 79 20 98/65 L 98 02/13/19 15:00 02/13/19 20:19 02/13/19 15:00 02/13/19 15:00 02/13/19 15:00 - Medications Medications: Current Medications Chlordiazepoxide (Librium) 25 mg PO TID [facility]; Taper Stop: 02/16/19 11:59 Last Admin: 02/13/19 17:04 Dose: 25 mg Ergocalciferol (Drisdol 50,000 Intl Units Cap) 1 cap PO QWK [facility] Last Admin: 02/12/19 10:00 Dose: 1 cap Fluocinonide (Lidex 0.05% Cream) 0 gm TOP BID [facility] Last Admin: 02/13/19 17:05 Dose: 1 applic Folic Acid (Folic Acid) 1 mg PO DAILY [facility] Last Admin: 02/13/19 09:49 Dose: 1 mg Gabapentin (Neurontin) 300 mg PO BID [facility] Last Admin: 02/13/19 17:04 Dose: 300 mg Levetiracetam (Keppra) 500 mg PO BID [facility] Last Admin: 02/13/19 17:04 Dose: 500 mg Mirtazapine (Remeron) 30 mg PO HS [facility] Last Admin: 02/13/19 21:06 Dose: 30 mg Multivitamins (Hexavitamin) 1 tab PO DAILY [facility] Last Admin: 02/13/19 09:49 Dose: 1 tab Thiamine HCl (Vitamin B1 Tab) 100 mg PO DAILY [facility] Last Admin: 02/13/19 09:49 Dose: 100 mg Trazodone HCl (Desyrel) 100 mg PO HS PRN PRN Reason: Insomnia Last Admin: 02/12/19 23:48 Dose: 100 mg - Labs Labs: 02/11/19 06:24 02/11/19 06:24
--- NOTE | 2019-02-14 04:37 | PN ---
DATE: 02/13/2019 SUBJECTIVE: The patient is seizure-free. She is shaking. She is afebrile. No nausea or vomiting. No cough. No fever. PHYSICAL EXAMINATION: VITAL SIGNS: Blood pressure is 101/68, pulse 73, respiratory rate 20, and temperature 97.6. LUNGS: Clear. CARDIOVASCULAR SYSTEM: S1 and S2. Regular. ABDOMEN: Soft. ASSESSMENT: 1. Delirium tremens. 2. Seizure disorder. 3. Alcoholism. PLAN: Continue current medications. Psychiatry followup. Monitor the patient. Rolan Fabian MD
[2019-02-14 08:14] VITALS: BP 107/69; TEMP 98.7; O2SAT 97
[2019-02-14] MEDS: Multiple Vitamins Tab PO SCH (09:29)
--- NOTE | 2019-02-14 11:13 | PCM.PYCHPN ---
Psychiatric Progress Note - Psychiatric Progress Note Patient seen today, length of contact: 15 min Patient Chief Complaint: I want to go home. Problems Identified/Issues Discussed: Patient was seen and evaluated, chart reviewed and discussed the staff. Patient reports some improvement in her withdrawal symptoms but she is refusing to go to detox. She reports that she has to go home and she cannot stay in detox. She reports improvement in her mood and denies any feelings of hopelessness or helplessness. She denies any auditory hallucinations or any paranoia. She denies any suicidal ideation or homicidal ideation. Supportive therapy was given Medication Change: Yes Medical Record Reviewed: Yes Mental Status Examination - Cognitive Function Orientation: Person, Place, Situation, Time Memory: Intact Attention: WNL Concentration: WNL Association: WNL Fund of Knowledge: WNL - Mood Mood: Anxious - Affect Affect: Constricted - Speech Speech: Soft - Formal Thought Process Formal Thought Process: No Impairment - Suicidal Ideation Suicidal Ideation: No - Homicidal Ideation Homicidal Ideation: No Goal/Treatment Plan - Goal/Treatment Plan Need for Continued Stay: Remain at risks for inpatient hospitalization Progress Toward Problem(s) and Goals/Treatment Plan: Patient psychiatrically stable and cleared for discharge - Smoking Cessation Smoking Cessation Initiated: No
[2019-02-14 11:55] LABS: BASO % 0.8 % (0.0-2.0); EOS # 0.4 K/uL (0.0-0.7); EOS % 8.1 % (0.0-4.0); LYMPH # 1.2 K/uL (1.0-4.3); LYMPH % 24.6 % (20.0-40.0); MEAN CELL VOLUME 92.1 fL (81.0-99.0); MEAN CORPUSCULAR HEMOGLOBIN 31.3 pg (27.0-31.0); MEAN PLATELET VOLUME 7.8 fL (7.2-11.7); MONO # 0.4 K/uL (0.0-0.8); MONO % 8.6 % (0.0-10.0); NEUT # 2.7 K/uL (1.8-7.0); NEUT % 57.9 % (50.0-75.0); RBC 3.7 Mil/uL (3.80-5.20); RED CELL DISTRIBUTION WIDTH 14.2 % (11.5-14.5); WHITE BLOOD COUNT 4.7 K/uL (4.8-10.8)
[2019-02-14 12:05] LABS: HEMOGLOBIN 11.6 g/dL (11.0-16.0)
[2019-02-14 12:16] LABS: BLOOD UREA NITROGEN 9 mg/dL (7-17); CALCIUM 9.3 mg/dl (8.6-10.4); GFR NON-AFRICAN AMERICAN > 60
[2019-02-14 13:52] VITALS: PULSE 82
--- NOTE | 2019-02-14 18:17 | CP.PCM.PN ---
Subjective - Date & Time of Evaluation Date of Evaluation: 02/14/19 Time of Evaluation: 13:00 - Subjective Subjective: Pateitn seen today denies any complaints , no tremors noted CIWA score 0 as per RN seen by Dr. Mehta , pt refuse detox , cleared for discharge home from psychiatry standpoint and f/u with her private psychiatrist Objective - Vital Signs/Intake and Output Vital Signs (last 24 hours): Temp Pulse Resp BP Pulse Ox 98.7 F 82 20 107/69 97 02/14/19 08:13 02/14/19 13:42 02/14/19 08:13 02/14/19 08:13 02/14/19 08:13 Intake and Output: 02/14/19 02/14/19 06:59 18:59 Intake Total 500 Balance 500 - Labs Labs: 02/14/19 11:37 02/14/19 11:37
--- NOTE | 2019-02-14 23:17 | CP.PCM.DIS ---
Provider - Provider Date of Admission: 02/11/19 06:51 Attending physician: Rolan Fabian MD Consults: 02/11/19 11:36 Psychiatry Consult Routine Comment: Consulting Provider: Junior Irvin Consulting Physician: Junior Irvin Reason for Consult: etoh Time Spent in preparation of Discharge (in minutes): 30 Hospital Course - Lab Results Lab Results: Most Recent Lab Values WBC 4.7 K/uL (4.8-10.8) L 02/14/19 11:37 RBC 3.70 Mil/uL (3.80-5.20) L 02/14/19 11:37 Hgb 11.6 g/dL (11.0-16.0) D 02/14/19 11:37 Hct 34.1 % (34.0-47.0) 02/14/19 11:37 MCV 92.1 fL (81.0-99.0) 02/14/19 11:37 MCH 31.3 pg (27.0-31.0) H 02/14/19 11:37 MCHC 34.0 g/dL (33.0-37.0) 02/14/19 11:37 RDW 14.2 % (11.5-14.5) 02/14/19 11:37 Plt Count 255 K/uL (130-400) 02/14/19 11:37 MPV 7.8 fL (7.2-11.7) 02/14/19 11:37 Neut % (Auto) 57.9 % (50.0-75.0) 02/14/19 11:37 Lymph % (Auto) 24.6 % (20.0-40.0) 02/14/19 11:37 [place] % (Auto) 8.6 % (0.0-10.0) 02/14/19 11:37 Eos % (Auto) 8.1 % (0.0-4.0) H 02/14/19 11:37 Baso % (Auto) 0.8 % (0.0-2.0) 02/14/19 11:37 Neut # (Auto) 2.7 K/uL (1.8-7.0) 02/14/19 11:37 Lymph # (Auto) 1.2 K/uL (1.0-4.3) 02/14/19 11:37 [place] # (Auto) 0.4 K/uL (0.0-0.8) 02/14/19 11:37 Eos # (Auto) 0.4 K/uL (0.0-0.7) 02/14/19 11:37 Baso # (Auto) 0.0 K/uL (0.0-0.2) 02/14/19 11:37 Sodium 135 mmol/L (132-148) 02/14/19 11:37 Potassium 3.7 mmol/L (3.6-5.2) 02/14/19 11:37 Chloride 102 mmol/L (98-107) 02/14/19 11:37 Carbon Dioxide 26 mmol/L (22-30) 02/14/19 11:37 Anion Gap 12 (10-20) 02/14/19 11:37 BUN 9 mg/dL (7-17) 02/14/19 11:37 Creatinine 0.8 mg/dL (0.7-1.2) 02/14/19 11:37 Est GFR ( Amer) > 60 02/14/19 11:37 Est GFR (Non-Af Amer) > 60 02/14/19 11:37 Random Glucose 84 mg/dL (65-105) 02/14/19 11:37 Calcium 9.3 mg/dl (8.6-10.4) 02/14/19 11:37 Phosphorus 1.9 mg/dL (2.5-4.5) L 02/11/19 06:24 Magnesium 1.9 mg/dL (1.6-2.3) 02/11/19 06:24 Total Bilirubin 0.9 mg/dL (0.2-1.3) 02/11/19 06:24 AST 54 U/L (14-36) H D 02/11/19 06:24 ALT 60 U/L (9-52) H D 02/11/19 06:24 Alkaline Phosphatase 61 U/L (38-126) 02/11/19 06:24 Total Protein 8.4 g/dL (6.3-8.3) H 02/11/19 06:24 Albumin 4.7 g/dL (3.5-5.0) 02/11/19 06:24 Globulin 3.7 gm/dL (2.2-3.9) 02/11/19 06:24 Albumin/Globulin Ratio 1.3 (1.0-2.1) 02/11/19 06:24 Urine Color Yellow (YELLOW) 02/11/19 06:24 Urine Clarity Hazy (Clear) 02/11/19 06:24 Urine pH 7.0 (5.0-8.0) 02/11/19 06:24 Ur Specific [place] 1.021 (1.003-1.030) 02/11/19 06:24 Urine Protein 2+ mg/dL (NEGATIVE) H 02/11/19 06:24 Urine Glucose (UA) Normal mg/dL (Normal) 02/11/19 06:24 Urine Ketones Trace mg/dL (NEGATIVE) 02/11/19 06:24 Urine Blood Negative (NEGATIVE) 02/11/19 06:24 Urine Nitrate Negative (NEGATIVE) 02/11/19 06:24 Urine Bilirubin Negative (NEGATIVE) 02/11/19 06:24 Urine Urobilinogen 2.0 mg/dL (0.2-1.0) H 02/11/19 06:24 Ur Leukocyte Esterase Neg Dagoberto/uL (Negative) 02/11/19 06:24 Urine WBC (Auto) 3 /hpf (0-5) 02/11/19 06:24 Urine RBC (Auto) < 1 /hpf (0-3) 02/11/19 06:24 Ur Squamous Epith Cells 22 /hpf (0-5) H 02/11/19 06:24 Amorphous Sediment Rare /ul (<OCC) H 02/11/19 06:24 Urine Bacteria Rare (<OCC) 02/11/19 06:24 Salicylates < 1.0 mg/dL 1 02/11/19 06:24 Urine Opiates Screen Negative (NEGATIVE) 02/11/19 06:24 Urine Methadone Screen Negative (NEGATIVE) 02/11/19 06:24 Acetaminophen < 10.0 ug/mL (10.0-30.0) L 02/11/19 06:24 Ur Barbiturates Screen Negative (NEGATIVE) 02/11/19 06:24 Ur Phencyclidine Scrn Negative (NEGATIVE) 02/11/19 06:24 Ur Amphetamines Screen Negative (NEGATIVE) 02/11/19 06:24 U Benzodiazepines Scrn Negative (NEGATIVE) 02/11/19 06:24 U Oth Cocaine Metabols Negative (NEGATIVE) 02/11/19 06:24 U Cannabinoids Screen Negative (NEGATIVE) 02/11/19 06:24 Alcohol, Quantitative 390 mg/dl (0-10) H 02/11/19 06:24 Discharge Plan - Follow Up Plan Condition: STABLE Disposition: HOME/ ROUTINE Instructions: Alcohol Withdrawal, Alcohol Abuse and Alcoholism (DC) Additional Instructions: Please f/u with PMD on Tuesday Please f/u with your psychiatrist - in 2-3 days Please resume all your home medications Please abstain from alcohol Please f/u with [facility] and out patient detox center Referrals: Alcoholics Anonymous [Outside] Junior Irvin MD [Staff Provider] - Rolan Fabian MD [Staff Provider] -
--- NOTE | 2019-02-15 14:24 | DS ---
DISCHARGE DIAGNOSES: 1. Alcohol withdrawal, delirium tremens. 2. Seizure disorder. 3. Depression. HISTORY OF PRESENT ILLNESS: This is a 28-year-old female with history of seizure disorder and alcoholism. She is noncompliant with diet and medications. She drinks large quantity of alcohol. She came in ere because of shaking, tremulousness after she stopped drinking. HOSPITAL COURSE: She was admitted to the floor, started on Librium, thiamine, multivitamin and the patient's condition improved. She was resumed on seizure medication. Psychiatry was consulted. The patient did well. She is for discharge. CONDITION UPON DISCHARGE: Stable. Rolan Fabian MD
== END 2019-02-14 14:54 | disposition home or self-care (01) | DRG 750 ==
LOC: C.ER 04:25 → C.9E 06:51 → C.5S 07:37
PROVIDERS: ADMIT Internal Medicine; ATTEND Internal Medicine
PROC: GZ56ZZZ Individual Psychotherapy, Supportive (ICD-10-PCS; principal; 2019-02-11)
DX: F10.231 Alcohol dependence with withdrawal delirium (principal); E86.0 Dehydration; Y90.8 Blood alcohol level of 240 mg/100 ml or more; F17.200 Nicotine dependence, unspecified, uncomplicated; F41.9 Anxiety disorder, unspecified